=== PATIENT | male | born 1980 | race Caucasian/White ===

== ENCOUNTER 2018-05-15 10:37 | Outpatient (CLI) | payer MEDICAID, SELFPAY ==
--- NOTE | 2018-05-15 11:08 | DI.RAD_ITS ---
SYMPTOMS/DIAGNOSIS: PRODUCTIVE COUGH, R05 PA AND LATERAL CHEST: No priors. The heart is normal in size. The lungs are clear. The mediastinal structures and pleura appear intact. CONCLUSION: Normal chest.
[2018-05-15 11:46] LABS: Absolute Basophil Count 0.02 k/cumm (0.0-0.2); Absolute Eosinophil Count 0.14 k/cumm (0.0-0.7); Absolute Lymphocyte Count 1.25 k/cumm (1.2-3.4); Absolute Monocyte Count 0.32 k/cumm (0.11-0.7); Absolute Neutrophil Count 2.88 k/cumm (1.2-6.7); Basophils % 0.4; HCT 42.6 % (40.0-50.0); HGB 14.4 g/dL (13.5-17.5); Lymphocytes % 27.1; Mean Corp. HGB Concentration 33.8 g/dL (32.0-36.0); Mean Corpuscular Hemoglobin 29.8 pg (27.0-33.0); Mean Corpuscular Volume 88.2 fL (80-95); Mean Platelet Volume 10.6 fL (8.0-11.0); Monocytes % 6.9; Neutrophils % 62.6; Platelet Count 168 x1000/uL (130-400); RBC 4.83 m/cumm (4.50-6.00); RBC Distribution Width 14.2 % (11.8-14.1); White Blood Cell Count 4.61 k/cumm (4.4-10.8)
[2018-05-15 12:48] LABS: ALT 77 U/L (12-78); AST 41 U/L (15-37); Alkaline Phosphatase 47 U/L (46-116); Anion Gap 5.2 mmol/L (3-11); BUN 17 mg/dL (7-18); Bilirubin, Total 0.6 mg/dL (0.2-1.0); CO2 31.8 mmol/L (21.0-32.0); Calcium 8.8 mg/dL (8.5-10.1); Chloride 103 mmol/L (98-107); Cholesterol 201 mg/dL (50-200); Glucose 97 mg/dL (70-100); HDL Cholesterol 56 mg/dL (40-60); LDL CHOLESTEROL 119 mg/dL (<100); Potassium 4.3 mmol/L (3.5-5.1); Sodium 140 mmol/L (136-145); Total Protein 7.5 g/dL (6.4-8.2); Triglyceride 137 mg/dL (30-150)
[2018-05-15 13:02] LABS: PHOSPHORUS 3.6 mg/dL (2.6-4.7)
[2018-05-16 11:41] LABS: Syphilis Serology (RPR) Positive (Negative)
[2018-05-16 14:52] LABS: Chlamydia Result Negative; GC Result Negative; Specimen Description URINE
[2018-05-16 15:35] LABS: HIV-1 RNA Quantification Undetected copies/mL (UNDECT)
[2018-05-16 15:41] LABS: CD3 81 % (62-87); CD4 30 % (35-63); CD8 50 % (10-35)
[2018-05-17 12:42] LABS: TB Interpretation Negative (NEGAT); TB1 Ag minus Nil 0.14 IU/mL; TB2 Ag minus Nil 0.09 IU/mL
[2018-05-21 11:27] LABS: Rapid Plasma Reagin w/Reflex Negative (Negative); Syphilis IgG Ab w/Reflex Positive (Negative)
[2018-05-22 12:13] LABS: Syphilis Ab, TP-PA Negative (Negative)
== END 2018-05-15 10:57 ==
PROVIDERS: PCP Nurse Practitioner Family; Visit Provider Internal Medicine Infectious Disease
DX: R05 Cough (principal); B20 Human immunodeficiency virus [HIV] disease; Z79.899 Other long term (current) drug therapy
CPT/HCPCS: 36415; 80053; 80061; 83721; 87491; 87536; 87591; 71046; 84100; 85025; 86359; 86360; 86480; 86592; 86780

== ENCOUNTER 2018-06-02 12:24 | Emergency (ER) | payer MEDICAID, SELFPAY ==
[2018-06-02 12:27] VITALS: BP 134/78; PULSE 55; RESP 16; TEMP 36.6; O2SAT 99
--- NOTE | 2018-06-02 12:41 | W.ED.GENAD ---
Discharge Plan Disposition Patient Disposition: HOME Condition: Improving Discharge Details Chief Complaint: Nk/Back Pain Clinical Impression: Lumbago Primary Care Provider: Ezra Estrada ED Provider: Keith Osei Home Meds and New Rx's Prescriptions: Continued Biktarvy 50-200-25 mg Tablet 1 tab PO DAILY RF: 0 Discharge Instructions Instructions: Low Back Strain (ED) Additional Instructions: Remove the Lidoderm patch in 12 hours. May perform foam rolling and spinal twist exercises as we discussed. Follow-up with Ezra Estrada in clinic for recheck. Return the emergency department for any acute concerns or if you develop increasing pain, numbness or tingling of the lower extremity, or new weakness Medical Decision Making 37-year-old male states he slipped on ice yesterday and did not fall but the twisting motion resulted in low back pain left greater than right is been persistent since that time and similar to previous. He is afebrile, well-appearing, normal motor, sensory and reflexes of the lower extremity. At the patient's request and with his consent I performed spinal axial twist with resistance which resulted in improved discomfort at the left SI joint. I will place a Lidoderm patch. Most consistent with SI joint shear/sacroiliitis, now improved. He may follow-up with Ezra Estrada in clinic for routine care. Return precautions to the ER were discussed. HPI General Mode of arrival: ambulatory. Date/Time Provider Initiated Documentation: 06/02/18 12:30. Limitations to Documentation: no limitations. Information obtained by: patient. History of Present Illness 37 year old M presents to the emergency department with the chief complaint of Left low back pain since yesterday, described as moderate and similar to prior episodes, Quality is described as dull and constant, and is localized to the back and left. Patient reports no radiation. Patient started experiencing this hour(s) and it has been constant. No relieving factors improve symptom(s), No exacerbating factors reported . Patient notes no other symptoms. and other (No change to urine. No numbness or tingling, no weakness). Patient did receive the following treatments prior to arrival, none Related Data Home Medications Medication Instructions Recorded Confirmed Biktarvy 1 tab PO DAILY 06/02/18 06/02/18 Allergies Allergy/AdvReac Type Severity Reaction Status Date / Time No Known Allergies Allergy Unverified 06/02/18 12:29 General Stated Complaint: Nk/Back Pain MALCOLM: 4 Review of Systems Review of Systems 8 systems reviewed and otherwise neg PENDING SALE TO [facility] Medical History HIV (human immunodeficiency virus infection) (Acute) Hepatitis C (Chronic) Social History Smoking/Tobacco Use Status: Current every day Alcohol Intake: current Alcohol Intake frequency: 3 or more drinks per day Alcohol type: beer Drug use: Never Substance use type: does not use Do you feel safe at home: Yes Do you feel safe in your relationship?: Yes Exam Narrative Exam Narrative: GEN: awake, alert, oriented 3. Pleasant, well groomed, interactive. HEAD: Normocephalic, atraumatic ENT: Mucous membranes moist, oropharynx unremarkable, External ear exam unremarkable EYES: PERRL, EOMI NECK: Full ROM, no FLORENCIO, no menigismus CHEST/RESP: Nontender, clear to auscultation bilateral, no wheeze/rhonchi/rales CARDIOVASCULAR: RRR, no murmur, rub mirtha. 2+ Rad pulse bilateral ABDOMEN: Soft, nontender, no mass. +Bowel sounds Back: Left SI joint tender. No midline step-off or deformity. EXT: Full ROM, no edema, no rash. 2+ patella reflex bilaterally. Sensation intact throughout including saddle distribution. Motor function 5 out of 5 in the bilateral lower extremity. Gait narrow based with good heel strike Neuro: Grossly normal neurologic exam, conversant, interactive. Psych: Speech fluent, thoughts congruent, affect normal Course Vital Signs Temperature 36.6 C 06/02/18 12:27 Pulse 55 L 06/02/18 12:27 Respiratory Rate 16 06/02/18 12:27 Blood Pressure 134/78 06/02/18 12:27 Pulse Oximetry 99 06/02/18 12:27 Temperature 36.6 C 06/02/18 12:27 Temperature Source Skin 06/02/18 12:27 Pulse 55 L 06/02/18 12:27 Respiratory Rate 16 06/02/18 12:27 Respiratory Effort 06/02/18 12:30 Blood Pressure 134/78 06/02/18 12:27 Blood Pressure Position Sitting 06/02/18 12:27 Pulse Oximetry 99 06/02/18 12:27 Oxygen Delivery Method Room Air 06/02/18 12:27 Oxygen Flow Rate 0 06/02/18 12:27
--- NOTE | 2018-06-02 12:44 | ED.GENADUL_ITS ---
Discharge Plan Disposition Patient Disposition: HOME Condition: Improving Discharge Details Chief Complaint: Nk/Back Pain Clinical Impression: Lumbago Primary Care Provider: Ezra Estrada ED Provider: Keith Oesi Home Meds and New Rx's Prescriptions: Continued Biktarvy 50-200-25 mg Tablet 1 tab PO DAILY RF: 0 Discharge Instructions Instructions: Low Back Strain (ED) Additional Instructions: Remove the Lidoderm patch in 12 hours. May perform foam rolling and spinal twist exercises as we discussed. Follow-up with Ezra Estrada in clinic for recheck. Return the emergency department for any acute concerns or if you develop increasing pain, numbness or tingling of the lower extremity, or new weakness Medical Decision Making 37-year-old male states he slipped on ice yesterday and did not fall but the twisting motion resulted in low back pain left greater than right is been persistent since that time and similar to previous. He is afebrile, well-appearing, normal motor, sensory and reflexes of the lower extremity. At the patient's request and with his consent I performed spinal axial twist with resistance which resulted in improved discomfort at the left SI joint. I will place a Lidoderm patch. Most consistent with SI joint shear/sacroiliitis, now improved. He may follow-up with Ezra Estrada in clinic for routine care. Return precautions to the ER were discussed. HPI General Mode of arrival: ambulatory . Date/Time Provider Initiated Documentation: 06/02/18 12:30 . Limitations to Documentation: no limitations . Information obtained by: patient . History of Present Illness 37 year old M presents to the emergency department with the chief complaint of Left low back pain since yesterday, described as moderate and similar to prior episodes, Quality is described as dull and constant, and is localized to the back and left. Patient reports no radiation. Patient started experiencing this hour(s) and it has been constant. No relieving factors improve symptom(s), No exacerbating factors reported . Patient notes no other symptoms. and other (No change to urine. No numbness or tingling, no weakness). Patient did receive the following treatments prior to arrival, none Related Data Home Medications Medication Instructions Recorded Confirmed Biktarvy 1 tab PO DAILY 06/02/18 06/02/18 Allergies Allergy/AdvReac Type Severity Reaction Status Date / Time No Known Allergies Allergy Unverified 06/02/18 12:29 General Stated Complaint: Nk/Back Pain MALCOLM: 4 Review of Systems Review of Systems 8 systems reviewed and otherwise neg [facility] Medical History HIV (human immunodeficiency virus infection) (Acute) Hepatitis C (Chronic) Social History Smoking/Tobacco Use Status: Current every day Alcohol Intake: current Alcohol Intake frequency: 3 or more drinks per day Alcohol type: beer Drug use: Never Substance use type: does not use Do you feel safe at home: Yes Do you feel safe in your relationship?: Yes Exam Narrative Exam Narrative: GEN: awake, alert, oriented 3. Pleasant, well groomed, interactive. HEAD: Normocephalic, atraumatic ENT: Mucous membranes moist, oropharynx unremarkable, External ear exam unremarkable EYES: PERRL, EOMI NECK: Full ROM, no FLORENCIO, no menigismus CHEST/RESP: Nontender, clear to auscultation bilateral, no wheeze/rhonchi/rales CARDIOVASCULAR: RRR, no murmur, rub mirtha. 2+ Rad pulse bilateral ABDOMEN: Soft, nontender, no mass. +Bowel sounds Back: Left SI joint tender. No midline step-off or deformity. EXT: Full ROM, no edema, no rash. 2+ patella reflex bilaterally. Sensation intact throughout including saddle distribution. Motor function 5 out of 5 in the bilateral lower extremity. Gait narrow based with good heel strike Neuro: Grossly normal neurologic exam, conversant, interactive. Psych: Speech fluent, thoughts congruent, affect normal Course Vital Signs Temperature 36.6 C 06/02/18 12:27 Pulse 55 L 06/02/18 12:27 Respiratory Rate 16 06/02/18 12:27 Blood Pressure 134/78 06/02/18 12:27 Pulse Oximetry 99 06/02/18 12:27 Temperature 36.6 C 06/02/18 12:27 Temperature Source Skin 06/02/18 12:27 Pulse 55 L 06/02/18 12:27 Respiratory Rate 16 06/02/18 12:27 Respiratory Effort 06/02/18 12:30 Blood Pressure 134/78 06/02/18 12:27 Blood Pressure Position Sitting 06/02/18 12:27 Pulse Oximetry 99 06/02/18 12:27 Oxygen Delivery Method Room Air 06/02/18 12:27 Oxygen Flow Rate 0 06/02/18 12:27
[2018-06-02 12:54] VITALS: BP 134/78; PULSE 55; RESP 16; TEMP 36.6; O2SAT 99
[2018-06-02] MEDS: Lidocaine 5% Patch 1 PATCH TP (12:55)
--- NOTE | 2018-06-03 12:51 | PDOC.ERCMPRO ---
Care Management Progress Note 06/03-Shaan came to the access department today looking for a PT referral. He saw Dr. Osei over the weekend for neck/back pain. No reference to PT in Dr. Osei's note. Called [facility] (Ezra Estrada is PCP) and spoke with Carol Ann, triage nurse. Carol Ann stated that Shaan had called her this morning. Shaan is scheduled to see Ezra and the behavioral health specialist tomorrow, 06/04 at 1020 and 11:00. Carol Ann stated that she spoke with Shaan about the PT consult and that it would be addressed at his appt tomorrow. Received phone call from Rohini at [facility] looking for PT consult. Rohini stated that Shaan had called her and she had scheduled him for 10 am tomorrow morning but needed the PT consult. Rohini stated that Shaan wasn't sure how he was going to get to the PT appt because he does not have a car. Explained to Rohini that Shaan would not be able to make a 10 am appt as he has appts at [facility]. Explained that [facility] would address the PT consult with him tomorrow. This CM has gone out to access multiple times to see Shaan. Once he went for lunch, another time for a walk, and then he had an appt with Comm. [facility]. Access will notify this CM once Shaan is back in the waiting room and will discuss the above at that time.
--- NOTE | 2018-06-03 13:10 | CMPROGNOTE_ITS ---
Care Management Progress Note 06/03-Shaan came to the access department today looking for a PT referral. He saw Dr. Osei over the weekend for neck/back pain. No reference to PT in Dr. Osei's note. Called [facility] (Ezra Estrada is PCP) and spoke with Carol Ann, triage nurse. Carol Ann stated that Shaan had called her this morning. Shaan is sc heduled to see Ezra and the behavioral health specialist tomorrow, 06/04 at 1020 and 11:00. Carol Ann stated that she spoke with Shaan about the PT consult and that it would be addressed at his appt tomorrow. Received phone call from Rohini at [facility] looking for PT consult. Rohini stated that Shaan had called her and she had scheduled him for 10 am tomorrow morning but needed the PT consult. Rohini stated that Shaan wasn't sure how he was going to get to the PT appt because he does not have a car. Explained to Rohini that Shaan would not be able to make a 10 am appt as he has appts at [facility]. Explained that [facility] would address the PT consult with him tomorrow. This CM has gone out to access multiple times to see Shaan. Once he went for lunch, another time for a walk, and then he had an appt with Comm. Mena. Access will notify this CM once Shaan is back in the waiting room and will discuss the above at that time.
== END 2018-06-02 12:51 | disposition home or self-care (01) ==
LOC: ER 12:51
PROVIDERS: Emergency Provider Emergency Medicine; PCP Nurse Practitioner Family
DX: M54.5 Low back pain (principal); B20 Human immunodeficiency virus [HIV] disease
CPT/HCPCS: 99283

== ENCOUNTER 2018-06-03 08:00 | Outpatient (CLI) | payer MEDICAID, SELFPAY | END 2018-06-03 08:20 | PROVIDERS: PCP Nurse Practitioner Family; Referring Provider Nurse Practitioner Family; Visit Provider Internal Medicine Infectious Disease | DX: B20 Human immunodeficiency virus [HIV] disease (principal); Z79.899 Other long term (current) drug therapy | CPT/HCPCS: 99215 ==

== ENCOUNTER 2019-01-01 16:48 | Emergency (ER) | payer OTHER, MEDICAID, SELFPAY ==
[2019-01-01 16:59] VITALS: BP 141/91; PULSE 91; RESP 19; TEMP 38.5; O2SAT 94
--- NOTE | 2019-01-01 17:41 | ED.GENADUL_ITS ---
Discharge Plan Disposition Patient Disposition: HOME Condition: Good Discharge Details Chief Complaint: GenMedical Clinical Impression: Abscess Primary Care Provider: Andre Osei ED Provider: Randee Hu Home Meds and New Rx's Prescriptions: New cephalexin [Keflex] 500 mg capsule 500 mg PO QID Qty: 40 RF: 0 sulfamethoxazole-trimethoprim [Bactrim DS] 800-160 mg tablet 1 tab PO BID Qty: 20 RF: 0 No Action Biktarvy 50-200-25 mg Tablet 1 tab PO DAILY RF: 0 buspirone 30 mg Tablet 25 - 50 mg PO BID RF: 0 Discharge Instructions Instructions: Abscess (ED) Additional Instructions: Warm compresses frequently as discussed. Change dressings once daily. He is cautioned not to remove wick. Use antibiotics as prescribed. Motrin or Tylenol for discomfort if needed. Wick removal in 2 days while in the shower as discussed. Wound culture pending. Follow-up with primary care doctor for recheck in the next 2 to 3 days. Return for any worsening, concerns, increase in redness, pain worsening fevers alarming symptoms or lack of improvement as discussed if needed sooner Discharge Data Discharge Date/Time-TO BE ENTERED AT DEPARTURE: 01/01/19 22:37 Medical Decision Making HIV positive hep C positive patient presents the ER for 4 days of left leg cellulitis and abscess. Patient reports increasing pain and swelling for the last 4 days which began as a pimple on the left thigh. Patient reports febrile sensation for the last 6 hours approximately associated with chills and mild nausea. Patient denies injury or trauma to the area. Patient does report IV drug use history but has not used in the last year. Patient reports HIV with increasing [facility] Patient does report a history few years ago when homeless and untreated for HIV where he had full- blown AIDS and associated infections. Patient reports he has not had labs since August during which time he reports CD4's were improving and viral load was low but he is unaware of his most recent numbers and has not have follow-up recently. We will check patient's labs and blood cultures given his history and reported ill feeling. His initial labs are unremarkable for obvious leukocytosis. Patient declined his second set of blood cultures and CD4 as well does viral load testing as we have no recent test results. Prior to incision and drainage patient would prefer imaging study of the area. CT ordered as he has IV contrast dye allergy we will not proceed with IV contrast CT but will skin with Noncon CT. CT ultimately reveals edema with overlying skin thickening indicating cellulitis but no discrete fluid collection or abscess. Incision and drainage was pursued given patient's clinical presentation. Purulent drainage was successfully drained from the area after incision and drainage culture obtained. Patient ultimately was provided a dose of Rocephin in conjunction with a dose of Bactrim in ER. Patient does not feel he requires admission to the hospital at this time would prefer outpatient follow-up and monitor symptoms. Precautions discussed for which she should have immediate return the emergency room. Patient reports his understanding. The patient was stable and requested discharge. Prior to discharge, my usual and customary return precautions were reviewed with the patient - this included follow-up instructions and reasons to return to the Emergency Department if conditions worsens, does not improve as expected, or other new concerns arise. HPI General Date/Time Provider Initiated Documentation: 01/01/19 16:56 . HPI Narrative: 38-year-old man who has known HIV and hepatitis C presents for a large abscess to his left thigh area. Patient denies IV drug use or injury at the site. Patient reports onset 4 days ago began as a small pimple gradually increased in size. Patient reports today increasing ill feeling, temperature of 101.3 on arrival. Patient reports onset of fevers, chills and sweats today. Denies difficulty breathing or shortness of breath or wheezing. Patient does admit to pain at the site of abscess in his thigh which radiates into his groin up to his hip and down his leg. Patient reports moderate swelling present. Tried a hot bath today which did not help. No drainage from the wound. No history of similar abscess. Patient does have a history of full-blown AIDS in the past. Patient has been taking HIV medication for the last 10 months, [facility] [place]. Last CD4 counts were improving and viral loads were decreasing, last labs drawn in August. Related Data Home Medications Medication Instructions Recorded Confirmed Biktarvy 1 tab PO DAILY 06/02/18 01/01/19 buspirone 25 - 50 mg PO BID 01/01/19 01/01/19 cephalexin [Keflex] 500 mg PO QID #40 cap 01/01/19 sulfamethoxazole-trimethoprim 1 tab PO BID #20 tab 01/01/19 [Bactrim DS] Previous Rx's Medication Instructions Recorded cephalexin [Keflex] 500 mg PO QID #40 cap 01/01/19 sulfamethoxazole-trimethoprim 1 tab PO BID #20 tab 01/01/19 [Bactrim DS] Allergies Allergy/AdvReac Type Severity Reaction Status Date / Time No Known Allergies Allergy Unverified 01/01/19 17:05 General Stated Complaint: GenMedical MALCOLM: 3 Review of Systems Review of Systems ROS Unobtainable: All systems reviewed & are unremarkable except as noted in HPI and below Constitutional Constitutional: Reports chills and Reports fever(s) Gastrointestinal Gastrointestinal: Denies abdominal pain, Reports nausea and Denies vomiting [facility] Medical History Hepatitis C (Chronic) HIV (human immunodeficiency virus infection) (Acute) Social History Smoking/Tobacco Use Status: Never Alcohol Intake: current Alcohol Intake frequency: 3 or more drinks per day Alcohol type: beer Drug use: Current Sobriety Substance use type: former substance user Do you feel safe at home: Yes Exam Narrative Exam Narrative: CONST: no acute distress. Well hydrated. Alert and alert. Febrile CHEST: Normal insepection of the chest. RESP: Normal respiratory effort. Speaking full sentences. No cough. No audible wheezing. No retractions. CARDIO: No JVD. No murmurs or rubs. Regular rhythm MUSCULOSKELETAL: Normal Gait. FROM of all extremities. Straight leg raise intact. Flexion-extension intact. Abdomen; no abdominal pain with palpation. Left inguinal lymphadenopathy is present SKIN: Normal. Dry. No rashes. Patient with a 10x9cm area of erythema. Induration and minimal fluctuation present. NEURO: Alert and awake. Speech clear. PSYCH: Normal affect. Cooperative. Course Vital Signs Vital signs: Vital Signs Temperature 38.5 C H 01/01/19 16:59 Pulse 91 H 01/01/19 16:59 Respiratory Rate 19 01/01/19 16:59 Blood Pressure 141/91 H 01/01/19 16:59 Pulse Oximetry 94 L 01/01/19 16:59 Temperature 38.5 C H 01/01/19 16:59 Temperature Source Skin 01/01/19 16:59 Pulse 91 H 01/01/19 16:59 Respiratory Rate 19 01/01/19 16:59 Respiratory Effort Non-Labored 01/01/19 17:03 Blood Pressure 141/91 H 01/01/19 16:59 Blood Pressure Position Sitting 01/01/19 16:59 Pulse Oximetry 94 L 01/01/19 16:59 Oxygen Delivery Method Room Air 01/01/19 16:59 Oxygen Flow Rate 0 01/01/19 16:59 Pain Level 7 01/01/19 16:59 Lab/Test Results Lab/Test Results: 01/01/19 17:27 Blood Blood Culture - Pending 01/01/19 17:27 Blood Blood Culture - Pending Procedures Other Description: Betadine prep to the area, anesthetized with lidocaine 1% approximately 2 to 3 cc. Incision and drainage with 11 blade with purulent drainage present, wound explored, irrigated, iodoform packing placed. No complication, culture obtained
[2019-01-01] MEDS: Lidocaine/Epinephri/Tetracaine Topical Gel 3 ML TP (17:49)
[2019-01-01] MEDS: Acetaminophen 500 MG TAB PO (17:49)
[2019-01-01 18:16] LABS: Abs Immature Grans 0.02 k/cumm (0.0-0.09); Absolute Basophil Count 0.02 k/cumm (0.0-0.2); Absolute Lymphocyte Count 0.99 k/cumm (1.2-3.4); Absolute Monocyte Count 0.55 k/cumm (0.11-0.7); Absolute Neutrophil Count 6.85 k/cumm (1.2-6.7); Basophils % 0.2; Eosinophils % 1.2; HCT 39.3 % (40.0-50.0); HGB 13.6 g/dL (13.5-17.5); Immature Grans % 0.2; Lymphocytes % 11.6; Mean Corp. HGB Concentration 34.6 g/dL (32.0-36.0); Mean Corpuscular Volume 89.5 fL (80-95); Mean Platelet Volume 10.7 fL (8.0-11.0); Monocytes % 6.4; Neutrophils % 80.4; Platelet Count 179 x1000/uL (130-400); RBC 4.39 m/cumm (4.50-6.00); RBC Distribution Width 13.3 % (11.8-14.1); White Blood Cell Count 8.53 k/cumm (4.4-10.8)
[2019-01-01 18:33] LABS: ALT 19 U/L (16-63); AST 17 U/L (15-37); Albumin 3.6 g/dL (3.4-5.0); Alkaline Phosphatase 44 U/L (46-116); Anion Gap 9.2 mmol/L (3-11); BUN 16 mg/dL (7-18); Bilirubin, Total 0.3 mg/dL (0.2-1.0); CO2 28.8 mmol/L (21.0-32.0); CREATININE 1.15 mg/dL (0.70-1.30); Calcium 8.4 mg/dL (8.5-10.1); Chloride 103 mmol/L (98-107); Glucose 90 mg/dL (70-100); Potassium 3.9 mmol/L (3.5-5.1); Sodium 141 mmol/L (136-145); Total Protein 7.1 g/dL (6.4-8.2)
--- NOTE | 2019-01-01 19:53 | DI.CT_ITS ---
EXAM: CT LOWER EXTREMITY LT WO CLINICAL HISTORY: abscess, r/o pelvic or deep invovlment COMPARISON: No exams were available for comparison FINDINGS: There is subcutaneous edema in the lateral left hip region. There is no evidence superficial or christiane p abscess. No abnormalities is seen within the pelvis. There is no evidence of fracture or bony jossue truction. The bladder, prostate and visualized portions of the bowel are unremarkable. IMPRESSION: Cellulitis of the lateral left hip subcutaneous tissues.. No evidence of abscess or deep involvement .
[2019-01-01] MEDS: Normal Saline 1,000 ML 1000 ML IV (20:04)
--- NOTE | 2019-01-01 21:07 | DI.VRAD_ITS ---
PROCEDURE INFORMATION: Exam: CT Left Lower Extremity Without Contrast; Thigh Exam date and time: 01/01/2019 7:48 PM Clinical history: 38 years old, male; Abscess; R/O pelvic or deep involvement TECHNIQUE: Imaging protocol: CT of the Left lower extremity without contrast was performed. Exam focused on the thigh. Radiation optimization: All CT scans at this facility use at least one of these dose optimization techniques: automated exposure control; mA and/or kV adjustment per patient size (includes targeted exams where dose is matched to clinical indication); or iterative reconstruction. COMPARISON: No relevant prior studies available. FINDINGS: Small fat-containing umbilical hernia. Normal visualized portions of the appendix. No focal osseous lesion. Lateral left hip region subcutaneous edema with overlying skin thickening indicating a cellulitis. No discrete soft tissue abscess. IMPRESSION: Lateral left hip region subcutaneous edema with overlying skin thickening indicating a cellulitis. No discrete soft tissue abscess. Dictated and Authenticated by: Ravi Lopez MD. Ordering:GUERO Jeff MD
[2019-01-01] MEDS: cefTRIAXone 1 GM/50 ML BAG IVPB (21:59)
[2019-01-01] MEDS: Sulfameth/Trimeth DS TAB 1 TAB PO (21:59)
--- NOTE | 2019-01-01 22:10 | NUR.NOTE ---
Nursing Note: Dressing applied to left hip; 4x4's applied over iodaform then covered with ABD pad and secured with paper tape. Pt tolerated well with no c/o pain or discomfort.
[2019-01-01 22:23] VITALS: BP 123/79; PULSE 102; RESP 16; TEMP 37.3; O2SAT 96
[2019-01-01 22:30] VITALS: BP 123/79; PULSE 102; RESP 16; TEMP 37.3; O2SAT 96
[2019-01-06 11:56] LABS: CD3 80 % (62-87); CD4 34 % (35-63); CD8 45 % (10-35)
[2019-01-06 15:23] LABS: HIV-1 RNA Quantification Undetected copies/mL (UNDECT)
== END 2019-01-01 22:37 | disposition home or self-care (01) ==
PROVIDERS: Emergency Provider Physician Assistant; PCP Internal Medicine Infectious Disease
DX: L02.416 Cutaneous abscess of left lower limb (principal); B95.62 Methicillin resistant Staphylococcus aureus infection as the cause of diseases classified elsewhere; B17.10 Acute hepatitis C without hepatic coma; B20 Human immunodeficiency virus [HIV] disease
CPT/HCPCS: 80053; 87040; 87077; 87536; 96361; 96365; 99284; 73700; 83605; 85025; 86359; 86360; 87070; 87186; 87205; J0696

== ENCOUNTER 2024-10-10 08:41 | Emergency (ER) | payer OTHER, SELFPAY ==
[2024-10-10 08:46] VITALS: BP 150/82; PULSE 69; RESP 18; TEMP 36.9; O2SAT 98
--- NOTE | 2024-10-10 09:00 | DI.CT_ITS ---
Exam(s) CT ABDOMEN PELVIS WO EXAM: CT ABDOMEN PELVIS WO CLINICAL HISTORY: right sided abdominal pain. TECHNIQUE: Imaging Protocol: Axial computed tomography images with coronal and sagittal reformatted images were created and reviewed. Oral: / no COMPARISON: No exams were available for comparison FINDINGS: Lung Bases: No acute findings. Liver: Normal density. No suspicious mass. Gallbladder and biliary tract: No radiodense calculus or biliary dilation. Pancreas: Normal density. No abnormal calcifications or inflammatory process. Spleen: Normal. Kidneys: Normal size, contour and axis. No radiodense stones. No obstructive uropathy. No suspicious masses seen. Adrenal glands: No masses seen. Lymph nodes: Within normal limits. Vasculature: Abdominal aorta non-dilated. Soft tissues: Unremarkable. Bladder: No wall thickening. No mass or calculi. Bowel: No obstruction or bowel wall thickening. Moderate to large quantity of stool seen throughout throughout the colon. The rectum is distended with stool. The appendix is normal. Peritoneal cavity: No ascites. No focal collection. No mesenteric inflammatory response. Reproductive organs: Unremarkable. Bones: Unremarkable for age. IMPRESSION: No acute abnormality in the abdomen or pelvis. Large quantity of stool consistent with constipation. RADIATION DOSE DELIVERED: 710.25mGy.cm Total DLP DATA REPOSITORY: All CT scans at this facility are submitted to the National Radiology Data Registry (NRDR) Dose Index Registry (DIR) with the [employer] ([employer]). RADIATION OPTIMIZATION: All CT scans at this facility use at least one of these dose optimization techniques: automated exposure control; mA and/or kV adjustment per patient size (includes targeted exams where dose is matched to clinical indication); or iterative reconstruction.
--- NOTE | 2024-10-10 09:05 | W.ED.GENAD ---
Discharge Plan Disposition Patient Disposition: [facility] Condition: Stable Discharge Details Clinical Impression: Abdominal pain, Constipation, N&V (nausea and vomiting) Primary Care Provider: Andre Osei ED Provider: Freddy Schwartz Home Meds and New Rx's Prescriptions: Continued Biktarvy 50-200-25 mg Tablet 1 tab PO DAILY lamivudine [Epivir] 300 mg tablet 300 mg PO DAILY Tivicay 50 mg tablet 50 mg PO DAILY cholecalciferol (vitamin D3) [Vitamin D3] 50 mcg (2,000 unit) capsule 50 mcg PO DAILY atorvastatin [Lipitor] 10 mg tablet 10 mg PO QHS Dandruff Shampoo (selenium) 1 % shampoo 1 applic topical QHS Rx Instructions: massage into affected area; leave on for 10 mins ; rinse off thoroughly polyethylene glycol 3350 [ClearLax] 17 gram/dose powder 17 g PO DAILY PRN Colace Clear 50 mg capsule 50 mg PO DAILY PRN benzoyl peroxide 2.5 % gel 1 applic topical DAILY buspirone 30 mg Tablet 25 - 50 mg PO BID Rx Instructions: 25 mg in am, 50 at hs Discharge Instructions Additional Instructions: Your blood work and CAT scan did not show any emergent findings. You do have a lot of stool in your colon. I would recommend taking your laxative and your stool softener daily. Follow-up with your medical provider if not improving within a week. If you feel significantly more ill or have new symptoms such as high fevers return to the emergency department for reevaluation HPI General Mode of arrival: ambulatory. Date/Time Provider Initiated Documentation: 10/10/24 08:42. Limitations to Documentation: no limitations. Information obtained by: patient. History of Present Illness 43 year old M presents to the emergency department with the chief complaint of abdominal pain, described as moderate, Quality is described as aching and sharp, and is localized to the abdomen. Patient reports no radiation. Patient started experiencing this week(s) (1) and it has been constant. No relieving factors improve symptom(s), No exacerbating factors reported . Patient notes nausea/vomiting; denies chest pain, fever/chills and shortness of breath. Related Data Home Medications ?Medication ?Instructions ?Recorded ?Confirmed bictegravir 50 mg-emtricitabine 1 tab PO DAILY 06/02/18 10/10/24 200 mg-tenofovir alafenam 25 mg tablet (Biktarvy) buspirone 30 mg tablet 25 - 50 mg PO BID 01/01/19 10/10/24 atorvastatin 10 mg tablet (Lipitor) 10 mg PO QHS 10/10/24 10/10/24 benzoyl peroxide 2.5 % topical gel 1 applic topical DAILY 10/10/24 10/10/24 cholecalciferol (vitamin D3) 50 50 mcg PO DAILY 10/10/24 10/10/24 mcg (2,000 unit) capsule (Vitamin D3) docusate sodium 50 mg capsule 50 mg PO DAILY PRN 10/10/24 10/10/24 (Colace Clear) dolutegravir 50 mg tablet (Tivicay) 50 mg PO DAILY 10/10/24 10/10/24 lamivudine 300 mg tablet (Epivir) 300 mg PO DAILY 10/10/24 10/10/24 polyethylene glycol 3350 17 17 g PO DAILY PRN 10/10/24 10/10/24 gram/dose oral powder (ClearLax) selenium sulfide 1 % shampoo 1 applic topical QHS 10/10/24 10/10/24 (Dandruff Shampoo (selenium sulfide)) Allergies Allergy/AdvReac Type Severity Reaction Status Date / Time Iodinated Contrast Media Allergy Severe Anaphylaxis Verified 10/10/24 09:02 General Stated Complaint: Abd Prob MALCOLM: 3 Review of Systems All systems reviewed & are unremarkable except as noted in HPI and below Constitutional Constitutional: Denies chills, Denies fever(s) and Denies weakness Cardiovascular Cardiovascular: Denies chest pain and Denies dyspnea Respiratory Respiratory: Denies cough and Denies dyspnea Gastrointestinal Gastrointestinal: Reports abdominal pain, Reports nausea and Reports vomiting Neurologic Neurologic: Denies weakness Exam Const General: no acute distress Orientation: alert [facility] Head: normal to inspection Ears: external ears normal General nose exam: external nose normal Mouth: moist mucous membranes Eyes General: appearance normal, both eyes and all related structures Neck Neck: normal visual inspection Resp Effort & Inspection: normal respiratory effort and able to speak in complete sentences Cardio Rate: regular rate GI Palpation: soft, no guarding and tender Skin General skin exam: no rashes or lesions noted Neuro General: patient alert and patient oriented x3 Extrem General: normal to inspection Psych Mental Status: mental status grossly normal Course Vital Signs Vital signs: Vital Signs Temperature 36.9 C 10/10/24 08:46 Pulse 69 07/25/25 08:46 Respiratory Rate 18 10/10/24 08:46 Blood Pressure 150/82 H 10/10/24 08:46 Pulse Oximetry 98 10/10/24 08:46 Temperature 36.9 C 10/10/24 08:46 Pulse 69 10/10/24 08:46 Respiratory Rate 18 10/10/24 08:46 Blood Pressure 150/82 H 10/10/24 08:46 Pulse Oximetry 98 10/10/24 08:46 Pain Level 7 10/10/24 08:46 Medical Decision Making 43-year-old male he states he has anaphylaxis to CT contrast comes in with right sided abdominal pain for a week. He also has had nausea and vomiting. He denies any fevers, chest pain, difficulty breathing. He denies any prior abdominal surgeries. He is ambulatory on arrival with [facility]. His abdomen is nondistended. He has right upper quadrant and right lower quadrant and also left lower quadrant tenderness. No guarding or rebound. Given the abdominal pain we will proceed with CBC, CMP lipase and a noncontrast CT abdomen pelvis. labs and imaging show no significant findings, does have evidence of constipation. Patient is stable resting in bed in no distress. Minimal tenderness to right lower quadrant. Given reassuring workup I feel he stable for discharge and can start a bowel regiment. Return precautions given Differential Diagnosis Differential Diagnosis: Appendicitis, colitis, pancreatitis PFSH All Active Problems (Updated 10/10/24 @ 10:02 by Freddy Schwartz MD) N&V (nausea and vomiting) (Acute) Constipation (Acute) Abdominal pain (Acute) Medical History (Updated 10/10/24 @ 10:02 by Freddy Schwartz MD) Hepatitis C HIV (human immunodeficiency virus infection) Social History Smoking/Tobacco Use Status: Never Smoking risk assessment performed?: Yes Alcohol Intake: current Alcohol Intake frequency: 3 or more drinks per day Alcohol type: beer Drug use: Current Sobriety Substance use type: former substance user Do you feel safe at home: Yes Additional Social history: currently lives at [facility]
[2024-10-10] MEDS: Droperidol 5 MG/2 ML VIAL 2.5 MG IVP (09:14)
[2024-10-10] MEDS: Ketorolac 15 MG/ML VIAL IVP (09:14)
[2024-10-10 09:16] LABS: Abs Immature Grans 0.01 10^3/uL (0.0-0.06); HCT 42.0 % (40.0-50.0); HGB 13.9 g/dL (13.5-17.5); Immature Grans % 0.3 %; MCH 29.0 pg (27.0-33.0); MCHC 33.1 % (32.0-36.0); MCV 88 fL (80-95); MPV 10.5 fL (8.0-11.0); Platelet Count 212 10^3/uL (130-400); RBC 4.80 10^6/uL (4.36-5.78); RDW 13.2 % (11.8-14.1); RDW-SD 42.3 fL; WBC 3.72 10^3/uL (4.4-10.8)
[2024-10-10 09:30] LABS: ALT 24 U/L (16-63); AST 14 U/L (15-37); Albumin 3.9 g/dL (3.4-5.0); Alkaline Phosphatase 57 U/L (46-116); Anion Gap 7.1 mmol/L (3-11); BUN 12 mg/dL (7-18); Bilirubin, Direct 0.1 mg/dL (0.0-0.2); Bilirubin, Total 0.3 mg/dL (0.2-1.0); CO2 28.9 mmol/L (21.0-32.0); Calcium 8.9 mg/dL (8.5-10.1); Chloride 107 mmol/L (98-107); Estimated GFR 112.61 (mL/min/1.73m2); Glucose 116 mg/dL (74-106); Lipase 29 U/L (<78); Potassium 4.1 mmol/L (3.5-5.1); Sodium 143 mmol/L (136-145); Total Protein 7.0 g/dL (6.4-8.2)
[2024-10-10 10:14] VITALS: BP 133/90; PULSE 60; RESP 16; O2SAT 99
== END 2024-10-10 10:16 ==
PROVIDERS: Emergency Provider Emergency Medicine; PCP Internal Medicine Infectious Disease
DX: R11.2 Nausea with vomiting, unspecified; K59.00 Constipation, unspecified; R10.31 Right lower quadrant pain; R10.11 Right upper quadrant pain; R10.32 Left lower quadrant pain; Z21 Asymptomatic human immunodeficiency virus [HIV] infection status
CPT/HCPCS: 99284; 99285; 96374; 96375; 80053; 83690; 74176; 82248; 85025; J1790; J1885